=== PATIENT | female | born 2000 | race African-American/Black ===

== ENCOUNTER 2020-09-29 13:13 | Outpatient (CLI) | payer OTHER, SELFPAY ==
--- NOTE | ~2020-09-29 | US_ITS ---
EXAMINATION: US OB follow up DATE: 09/29/2020 15:16 INDICATION: Routine care. TECHNIQUE: Real-time ultrasound of the pelvis was performed. COMPARISON: None. FINDINGS: There is a single living fetus in breech presentation. The placenta is fundal, 7.1 cm from the cervi x. heart rate is 135 beats per minute (bpm). The amniotic fluid volume is subjectively normal. The following biometric data were obtained: Biparietal diameter (BPD): 6.1 cm; head circumference (HC): 23.2 cm; abdominal circumference (AC): 21 .8 cm; femur length (FL): 4.8 cm. These measurements are concordant. Estimated weight is 871 g +/- 131 g, which correlates with 7th percentile when 12/28/20 is used as estimated date of delivery. As single measurements, these parameters are each equal to the following estimated gestational ages: BPD: 24 weeks 5 days. HC: 25 weeks 2 days. AC: 26 weeks 2 days. FL: 25 weeks 6 days. estimated gestational age based solely on measurements from this exam is 25 weeks 4 days +/- 1 weeks 6 days. IMPRESSION: 1. Single living fetus in breech presentation. 2. Small for gestational age. Estimated weight is 871 g +/- 131 g, which correlates with 7th p ercentile when 12/28/20 is used as estimated date of delivery. Reviewed, dictated and finalized at location A. N BUILDER IMPRESSION: 1. Single living fetus in breech presentation. 2. Small for gestational age. Estimated weight is 871 g +/- 131 g, which correlates with 7th percentile when 12/28/20 is used as estimated date of deliv clair.
== END 2020-09-29 13:14 | disposition home or self-care (01) ==
PROVIDERS: PCP Internal Medicine Gastroenterology; Visit Provider Physician Assistant
DX: Z34.93 Encounter for supervision of normal pregnancy, unspecified, third trimester (principal); Z3A.25 25 weeks gestation of pregnancy
CPT/HCPCS: 76816

== ENCOUNTER 2021-01-01 05:43 | Inpatient (IN) | payer OTHER, SELFPAY ==
[2021-01-01] VITALS (62 sets, daily range): BP systolic 76–141; BP diastolic 20–99; PULSE 65–133; RESP 16–20; TEMP 36.5–36.9; O2SAT 98–100; BMI 31.3
--- NOTE | 2021-01-01 05:56 | PM.IMHP ---
H&P: HPI History of Present Illness Date/Time: 01/01/21 05:56 20 y/o presents for IOL at [id number]. complicated by asthma, depression, MTHFR, GBS, insufficient care, SGA-fgr. The patient was lost to follow up for 1.5 months during current . I explained her condition procedure and risks involved including risks of section for maternal or indication with risks involved including bleeding infection injury to bladder or bowel baby pelvic vessels DVT pneumonia wound infection endometritis UTI and risk of anesthesia risk of hemorrhage risk of shoulder dystocia she understands all this accepts and agrees to proceed. Induction method low-dose Pitocin Chief Complaint: term , GBS positive, elective induction of labor Review of Systems Review of Systems: All systems reviewed & are unremarkable except as noted in HPI and below Constitutional: Constitutional: Reports no additional constitutional complaints Eyes: Eyes: Reports no additional eye complaints ENT: Reports system reviewed and no additional complaints, except as documented Cardiovascular: Cardiovascular: Reports no additional cardiovascular complaints Respiratory: Respiratory: Reports no additional respiratory complaints Gastrointestinal: Gastrointestinal: Reports no additional gastrointestinal complaints Genitourinary: Genitourinary: Reports no additional female genitourinary complaints Musculoskeletal: Musculoskeletal: Reports no additional musculoskeletal complaints Integumentary/Breasts: Skin/Breast: Reports system reviewed and no additional complaints, except as docu Neurologic: Reports system reviewed and no additional complaints, except as documented Psychiatric: Psychiatric: Reports no additional psychiatric complaints Endocrine: Endocrine: Reports no additional endocrine complaints Hematologic/Lymphatic: Hematologic/Lymphatic: Reports no additional hematologic/lymphatic complaints Allergic/Immunologic: Allergic/Immunologic: Reports no additional allergic/immunologic complaints [facility] Past Medical History Medical History (Updated 01/01/21 @ 06:11 by Edmundo Monge MD) Active asthma Depression GBS (group B Streptococcus carrier), +RV culture, currently MTHFR deficiency complicating Overweight (BMI 25.0-29.9) Vaginal delivery [id number]/25/[id number] lbs.6 oz.FFull Term Social History Social History (Updated 01/01/21 @ 06:12 by Edmundo Monge MD) Smoking status: Never smoker Second hand tobacco smoke exposure: No Alcohol intake: never Substance use: never Living arrangements: with family Gender identity (if verbalized by the patient): Female Sexual Orientation (if Verbalized by the Patient): Straight or Heterosexual Spiritual care concerns: No Agree to blood products: Yes Meds Home Medications and Allergies Allergies Allergy/AdvReac Type Severity Reaction Status Date / Time iodine Allergy Mild Rash Verified 01/01/21 06:15 shellfish derived AdvReac Mild Rash Verified 01/01/21 06:16 Exam Const: General: cooperative, healthy appearing, comfortable, no acute distress, well developed, alert, awake and Physically active Nutritional Appearance: average body habitus and obese Orientation/consciousness: patient oriented x3 Limitations: no limitations HENMT: Head: normal to inspection Eyes: General: appearance normal, both eyes and all related structures Neck: Neck: normal visual inspection and full ROM Chest: Chest palpation & inspection: normal inspection of the chest Resp: Effort & Inspection: normal respiratory effort Auscultation: clear to auscultation bilaterally Cardio: Rate: regular rate Rhythm: regular rhythm Heart sounds: S1 normal heart sound present and S2 normal heart sound present GI: Inspection: normal to inspection and obesity GI Palp: Yes Soft to palpation Auscultation: normal bowel sounds : Externa
--- NOTE | 2021-01-01 06:01 | WPDHPUPDATE1 ---
History and Physical Update Update Date/Time: 01/01/21 06:01 History and Physical has been reviewed, including an updated exam of the patient. There are NO changes in the patient's condition. Risks, benefits, and alternatives have been discussed and questions answered. Patient agrees to proceed with procedure. 20 y/o presents for IOL at [id number]. complicated by asthma, depression, MTHFR, GBS, insufficient care, SGA-fgr. The patient was lost to follow up for 1.5 months during current . I explained her condition procedure and risks involved including risks of section for maternal or indication with risks involved including bleeding infection injury to bladder or bowel baby pelvic vessels DVT pneumonia wound infection endometritis UTI and risk of anesthesia risk of hemorrhage risk of shoulder dystocia she understands all this accepts and agrees to proceed. Induction method low-dose pitocin
--- NOTE | 2021-01-01 06:03 | WPDOBADMIT ---
Obstetrics - Admit Note Admission Note: record reviewed. No pertinent additions to the history and/or any subsequent changes in the physical findings that are not consistent with the expected course of the were found. Additions to the history and/or subsequent changes in the physical findings follow. None. 20 y/o presents for IOL at [id number]. complicated by asthma, depression, MTHFR, GBS, insufficient care, SGA-fgr. The patient was lost to follow up for 1.5 months during current . I explained her condition procedure and risks involved including risks of section for maternal or indication with risks involved including bleeding infection injury to bladder or bowel baby pelvic vessels DVT pneumonia wound infection endometritis UTI and risk of anesthesia risk of hemorrhage risk of shoulder dystocia she understands all this accepts and agrees to proceed. Induction method low-dose Pitocin
--- NOTE | 2021-01-01 06:05 | WPDANESEPP ---
Anes - Eval Pre Procedure Procedure: labor epidural Date/Time: 01/01/21 06:05 Surgeon: Mariposa Preop Diagnosis: abd pain with contractions Pre Op Diagnosis: IOL Patient Data Age: 20 Gender: F Height: Weight: Last Vital Signs Pulse 91 01/01/21 06:02 BP 124/68 01/01/21 06:02 Patient hx anesthesia problems: none Family hx anesthesia problems: none PMFSH Past Medical History Medical History Active asthma Depression MTHFR deficiency complicating Overweight (BMI 25.0-29.9) Exam Day of Procedure 01/01/21 06:05 Patient weight: overweight Airway: Mallampati scale class II Neurological: alert and oriented
[2021-01-01 06:35] LABS: Basophils Percent Auto 0.1 % (0.2-1.2); Eosinophils Absolute Auto 0.2 K/mm3 (0-0.3); Eosinophils Percent Auto 2.2 % (0-4.4); Hematocrit 33.6 % (37.0-47.0); Hemoglobin 10.3 g/dL (12.0-15.0); Immature Granulocyte Percent A 1.1 % (0-0.5); Lymphocytes Absolute Auto 2.71 K/mm3 (0.9-3.2); Mean Corpuscular HGB Conc 30.7 g/dl (32-36); Mean Corpuscular Volume 65.4 fl (80-100); Mean Platelet Volume 10.6 fl (7.4-10.4); Monocytes Absolute Auto 0.6 K/mm3 (0.1-0.6); Monocytes Percent Auto 6.5 % (2.6-8.5); Neutrophils Absolute Auto 5.4 K/mm3 (1.3-6.7); Neutrophils Percent Auto 60.1 % (45.5-73.1); Platelet Count Result 300 k/mm3 (150-375); Red Blood Count 5.14 M/mm3 (4.2-5.4); Red Cell Distribution Width 17.7 % (11.5-14.5)
[2021-01-01] MEDS: LACTATED RINGERS 1,000 ML 125 ML IV CONT ×3 (06:47→12:18)
[2021-01-01] MEDS: AMPICILLIN 2 GM/NS 100 ML 2 GM/100 ML BAG IVPB (06:49)
[2021-01-01] MEDS: OXYTOCIN 30 UNITS/NS 500 ML 30 UNITS/500 ML BAG 125 UNITS IV CONT ×2 (06:50→14:24)
[2021-01-01] MEDS: AMPICILLIN 1 GM/NS 50 ML 1 GM/50 ML BAG IVPB (11:03)
--- NOTE | 2021-01-01 11:09 | PM.OBPNLAB ---
Pain Control Date/time seen: 01/01/21 11:09 Pain control: tolerating well Pelvic Exam Dilation (cm): 2 Effacement (%): 80 station: -2 Amniotic membrane status: Ruptured (AROM clear af) Contractions Monitor mode: External Contraction frequency: 3 Contraction duration: 45 Contraction pattern: Regular Contraction phase: Contraction Contraction intensity: Moderate Status status: Category l Assessment and Plan Pitocin rate (mU/min): 12 Assessment: induction ongoing Plan: continuous present management
--- NOTE | 2021-01-01 13:57 | PM.OBPNLAB ---
Pain Control Date/time seen: 01/01/21 13:27 Pain control: tolerating well and epidural Pelvic Exam Dilation (cm): 10 Effacement (%): 100 station: +3 Amniotic membrane status: Ruptured (AROM clear af) Contractions Monitor mode: External Contraction frequency: 3 Contraction pattern: Regular Contraction phase: Contraction Contraction intensity: Moderate Status status: Category l Assessment and Plan Assessment: active labor Plan: continuous present management
--- NOTE | 2021-01-01 13:57 | PM.OBPRVD ---
OB - Delivery Note Procedure Delivery date: 01/01/21 Procedure: Normal spontaneous vertex vaginal delivery a viable female infant and placenta Repair of first-degree perineal laceration events: Labor Induction Intrapartal events: None Induction method: per pitocin protocol Delivery augmentation: rupture of membranes Delivery monitor: external FHT and external uterine Route of delivery: Episiotomy description: None Laceration Description: Perineal - 1st Degree Delivery repair: chromic Specimen: Yes ( placenta, cord blood, cord blood gases) Quantitative Blood Loss (ml): 150 Anesthesia type: Epidural Disposition: floor Complications: none Narrative: normal spontaneous vertex vaginal delivery a viable female over an intact perineum. Anterior shoulder delivered without difficulty delivered and placed on the maternal abdomen cord clamped and cut bulb suction stimulated normal spontaneous respirations and cry no observed abnormalities in the exam handed to the nursery nurse in attendance skin to skin contact given. Cord gases and cord blood obtained and the placenta was then delivered intact three-vessel cord with the uterus laly well with Pitocin given intravenously. Blood clots removed from the intrauterine cavity first-degree perineal laceration was then repaired with 2 0 chromic running fashion. Cervix and rectum were checked no sponges left in the vagina no fistula sphincter was intact. Mom and baby in stable condition Baby Date of : 01/01/21 Time of : 13:34 Weeks of gestation at delivery: 40 gender: Female Weight (pounds): 7 Weight (ounces): 15 presentation: vertex position: Left Occiput Anterior Placenta delivery description: Spontaneous and Normal Configuration cord vessel description: 3 Vessels score one minute: 9 score five minutes: 9 Narrative: normal transition normal exam taken to nursery in stable condition
--- NOTE | 2021-01-01 17:00 | PC.NURSE ---
Patient transferred to post room #285 per wheelchair from labor and delivery. Support person present. Oriented to unit, room, information board, rooming in, admission packet and security measures. Patient verbalizes understanding.
[2021-01-01] MEDS: ACETAMINOPHEN 325 MG TABLET 650 MG PO (19:57)
[2021-01-02] MEDS: ACETAMINOPHEN 325 MG TABLET 650 MG PO ×2 (00:29→07:38)
[2021-01-02] MEDS: IBUPROFEN 600 MG TABLET PO ×2 (03:45→16:40)
[2021-01-02 03:56] VITALS: BP 105/71; PULSE 66; RESP 18; TEMP 36.7; O2SAT 100
[2021-01-02 04:53] LABS: Hematocrit 30.7 % (37.0-47.0); Hemoglobin 9.5 g/dL (12.0-15.0)
[2021-01-02 07:38] VITALS: BP 113/70; PULSE 68; RESP 16; TEMP 36.5; O2SAT 100
[2021-01-02] MEDS: POLYSACCHARIDE IRON COMPLEX 150 MG CAPSULE PO ×2 (07:38→16:40)
[2021-01-02] MEDS: DOCUSATE SODIUM 100 MG CAPSULE PO ×2 (07:38→16:40)
[2021-01-02] MEDS: MULTIVIT/MIN/PREN/FOL AC/IRON TABLET 1 TAB PO (07:38)
--- NOTE | 2021-01-02 08:48 | WPDANLDPN2 ---
Anes-Prog Note L&D Date/Time: 01/02/21 08:48 Comfortable throughout: labor and delivery Neuraxial method: epidural Epidural/Spinal procedure site: clean & non-tender Neuro status: Neuro function grossly intact. Cardiovascular status: normal Respiratory status: normal Airway patency: baseline Mental status: baseline Post-Op hydration status: normal Vital Signs: Last Vital Signs Temp 36.5 C 01/02/21 07:38 Pulse 68 01/02/21 07:38 Resp 16 01/02/21 07:38 BP 113/70 01/02/21 07:38 Pulse Ox 100 01/02/21 07:38 Pain score (VAS): 0 I/O: Intake & Output 01/01/21 01/02/21 01/02/21 23:59 07:59 15:59 Intake Total 500 Output Total 200 Balance 300 Post-procedural complaints: none Patient feedback: Patient satisfied with anesthetic care.
--- NOTE | 2021-01-02 18:56 | P.PNOB_ITS ---
OB - PN: Subj Subjective Date/time seen: 01/02/21 18:56 Patient comments: no complaints, pain well controlled and tolerating diet [place] baby status: doing well [place] feeding status: breast and bottle feeding OB - PN: Obj Data Labs CBC & Chem 7: 01/02/21 03:43 Labs: Laboratory Results - last 24 hr 01/02/21 03:43 Hgb 9.5 L Hct 30.7 L OB - PN A/P Assessment and Plan (1) Term delivered: Code(s): O80 - Encounter for full-term uncomplicated delivery Status: Acute Plan day: 1 Plan: routine care, discharge home and follow up 6 weeks Time Spent With Patient Time: Total time spent is greater than 50% in coordination of care (as docume nted) at patient's floor/unit and/or counseling patient: Time with patient: less than 15 minutes Review of Systems Review of Systems: All systems reviewed & are unremarkable except as noted in HPI and below Exam Const: General: comfortable, no acute distress, alert and awake Orientati on/consciousness: patient oriented x3 Chest: Breast/axilla inspection: normal inspection of the breasts Resp: Effort & Inspection: normal respiratory effort Cardio: Rate: regular rate GI: GI Palp: Yes Soft to palpation : External Female Exam: normal external appearance Psych: Appearance: grossly normal Mental Status: mental status grossly normal Affect: normal affect Attitude: cooperative Thought content: Yes Normal thought content present Judgement: Good judgement present (Psych)
[2021-01-02 19:30] VITALS: BP 121/79; PULSE 77; RESP 16; TEMP 37.1; O2SAT 100
--- NOTE | 2021-01-03 06:27 | PM.OBDSVD ---
DS: Admitting Diagnosis Admitting Diagnosis Admitting Diagnosis: Term Elective induction of labor DS: Discharge Diagnosis Discharge Diagnosis (1) Encounter for elective induction of labor: Code(s): Z34.90 - Encounter for supervision of normal , unspecified, unspecified trimester Status: Acute (2) GBS (group B Streptococcus carrier), +RV culture, currently : Code(s): O99.820 - Streptococcus B carrier state complicating Status: Acute (3) Term delivered: Code(s): O80 - Encounter for full-term uncomplicated delivery Status: Acute OB - DS: Summary Hospital Course Time spent discussing smoking cessation with patient: 3 to 10 minutes OB Procedures : Ultrasound OB Procedures Intrapartum: Spontaneous Vag Delivery OB Procedures: : None Peripartum Data Infant Delivery Method: Natural Vaginal Laceration Description: Perineal - 1st Degree Episiotomy description: None complications: none [place] 1: Gender: Female Disposition of : home Status at Discharge Functional status at discharge: independent ambulation Overall status at discharge: patient is back to baseline Time Spent with Patient Time attestation: Total time spent providing and/or coordinating discharge services: Time spent: Less than 30 minutes Exam Const: General: cooperative, healthy appearing, comfortable, no acute distress, well developed, alert, awake and Physically active Nutritional Appearance: average body habitus Orientation/consciousness: patient oriented x3 Limitations: no limitations HENMT: Head: normal to inspection Eyes: General: appearance normal, both eyes and all related structures Neck: Neck: normal visual inspection Chest: Chest palpation & inspection: normal inspection of the chest Resp: Effort & Inspection: normal respiratory effort Cardio: Rate: regular rate Rhythm: regular rhythm GI: Inspection: normal to inspection GI Palp: Yes Soft to palpation Auscultation: normal bowel sounds : External Female Exam: normal external appearance Bimanual exam- vagina & uterus: non-tender Back/Spine/Pelvis: Back: no CVA tenderness Skin: General skin exam: normal color Neuro: General: patient oriented x3, gait normal, tone normal and moves all extremities Extrem: General: normal to inspection Psych: Appearance: grossly normal Mental Status: mental status grossly normal Speech and movement: Normal speech and movement present Affect: normal affect Attitude: cooperative Thought process: Normal thought process present Thought content: Yes Normal thought content present Insight: Good insight present (Psych) Judgement: Good judgement present (Psych) DS: Data Data Completed and Pending Labs on day of discharge: Labs from last 24 hours 01/01/21 01/01/21 01/01/21 06:27 06:27 06:27 WBC 9.0 RBC 5.14 Hgb 10.3 L Hct 33.6 L MCV 65.4 L MCH 20.0 L MCHC 30.7 L RDW 17.7 H Plt Count 300 MPV 10.6 H Immature Gran % (Auto) 1.1 H Neut % (Auto) 60.1 Lymph % (Auto) 30.0 [place] % (Auto) 6.5 Eos % (Auto) 2.2 Baso % (Auto) 0.1 L Lymph # (Auto) 2.71 [place] # (Auto) 0.6 Eos # (Auto) 0.2 Baso # (Auto) 0.0 Abs Immat Gran (auto) 0.10 H Absolute Neuts (auto) 5.4 Absolute Nucleated RBC 0.0 Nucleated RBC % 0.0 RPR Pending Blood Type O Positive Antibody Screen Negative Discharge Plan Discharge Attending physician on discharge: Edmundo Monge Discharging Clinician: Edmundo Monge Anticipated Discharge Date/Time: 01/03/21 06:26 Patient Disposition: Home, Self-Care Activity: may shower, may drive after 2 weeks and as tolerated Diet: as tolerated and regular Wound Care Instructions: follow printed instructions Discharge Instructions: Routine Patient Instructions: Antibiotic Form Stand Alone Forms: [employer]
[2021-01-03 07:32] VITALS: BP 116/64; PULSE 78; RESP 12; TEMP 36.7; O2SAT 98
[2021-01-03] MEDS: DOCUSATE SODIUM 100 MG CAPSULE PO (07:32)
[2021-01-03] MEDS: POLYSACCHARIDE IRON COMPLEX 150 MG CAPSULE PO (07:32)
[2021-01-03] MEDS: MULTIVIT/MIN/PREN/FOL AC/IRON TABLET 1 TAB PO (07:32)
[2021-01-04 08:01] LABS: Rapid Plasma Reagin Non-Reactive (NonReactive)
[2021-01-06 11:10] VITALS: BP 127/81; PULSE 72; RESP 20; TEMP 37.4; O2SAT 100
== END 2021-01-03 18:40 | disposition home or self-care (01) | DRG 560 ==
LOC: ANHLDR 14:36 → ANHOB2 17:12
PROVIDERS: Admitting Provider Obstetrics & Gynecology; PCP Internal Medicine Gastroenterology; Visit Provider Obstetrics & Gynecology
DX: O99.824 Streptococcus B carrier state complicating childbirth (principal); Z37.0 Single live birth; Z3A.40 40 weeks gestation of pregnancy; O70.0 First degree perineal laceration during delivery; O99.52 Diseases of the respiratory system complicating childbirth; J45.909 Unspecified asthma, uncomplicated; O99.344 Other mental disorders complicating childbirth; F32.9 Major depressive disorder, single episode, unspecified; F41.9 Anxiety disorder, unspecified; O99.284 Endocrine, nutritional and metabolic diseases complicating childbirth; E72.12 Methylenetetrahydrofolate reductase deficiency; O36.5930 Maternal care for other known or suspected poor fetal growth, third trimester, not applicable or unspecified
CPT/HCPCS: 36415; 85014; 85018; 85025; 86592; 86850; 86900; 86901; 88307; A9270; J0290; J2590; J2795; J7120

== ENCOUNTER 2022-08-16 15:24 | Outpatient (CLI) | payer OTHER, SELFPAY ==
--- NOTE | ~2022-08-16 | US_ITS ---
EXAMINATION: US OB follow up DATE: 08/16/2022 16:12 INDICATION: Encounter for supervision of normal second trimester TECHNIQUE: Real-time ultrasound of the pelvis was performed. The interpreting radiologist was not pre sent for the study. COMPARISON: None. FINDINGS: There is a single living fetus in breech presentation. The placenta is posterior and 3.1 cm from the internal cervical os. The cervical length is 4.2 cm. cardiac activity and movem ent are noted. heart rate is 164 beats per minute (bpm). The amniotic fluid index is subjective ly normal. The following biometric data were obtained: Biparietal diameter (BPD): 4.3 cm; head circumference (HC): 16.6 cm; abdominal circumference (AC): 14 .2 cm; femur length (FL): 3.2 cm. These measurements are concordant. Estimated weight is 304 g +/- 45 g, which correlates with the 9th percentile when 12/30/2022 is used as estimated date of delivery. As single measurements, these parameters are each equal to the following estimated gestational ages w ith ranges of +/- 2 standard deviations: BPD: 19 weeks 0 days +/- 1 weeks 5 days. HC: 19 weeks 2 days +/- 1 weeks 3 days. AC: 19 weeks 4 days +/- 2 weeks 0 days. FL: 19 weeks 6 days +/- 1 weeks 6 days. estimated gestational age based solely on measurements from this exam is 19 weeks 3 days +/- 1 weeks 3 days. IMPRESSION: 1. Single living fetus in breech presentation. 2. Estimated weight is 304 g +/- 45 g, which correlates with the 9th percentile when 12/30/2022 is used as estimated date of delivery. Reviewed, dictated and finalized at location B. RATOR OPERATOR IMPRESSION: 1. Single living fetus in breech presentation. 2. Estimated weight is 304 g +/- 45 g, which correlates with the 9th perc entile when 12/30/2022 is used as estimated date of delivery.
== END 2022-08-16 15:25 | disposition home or self-care (01) ==
LOC: ANHIMG 15:27
PROVIDERS: PCP Internal Medicine Gastroenterology; Visit Provider Physician Assistant
DX: Z34.82 Encounter for supervision of other normal pregnancy, second trimester (principal)
CPT/HCPCS: 76816